=== PATIENT | female | born 1990 | race Caucasian/White ===

== ENCOUNTER 2017-07-27 13:10 | Inpatient (IN) | payer MEDICAID ==
[2017-07-27] MEDS ORDERED: LACTATED RINGER'S 1,000 ML IV SCH (13:33)
[2017-07-27 13:48] LABS: BASOPHILS % 0.2 % (0.0-2.0); EOSINOPHILS % 0.2 % (0.0-7.0); HEMATOCRIT 38.3 % (37.0-47.0); HEMOGLOBIN 13.6 g/dl (12.0-16.0); LYMPHOCYTES # 1.8 10^3/ul (0.8-2.9); LYMPHOCYTES % 14.2 % (15.0-51.0); MEAN CORPUSCULAR HEMOGLOBIN 32.3 pg (29.0-33.0); MEAN CORPUSCULAR HGB CONC 35.5 g/dl (32.0-37.0); MEAN PLATELET VOLUME 10.8 fl (7.4-10.4); MONOCYTE # 0.6 10^3/ul (0.3-0.9); MONOCYTES % 4.5 % (0.0-11.0); NEUTROPHIL # 10.4 10^3/ul (1.6-7.5); NEUTROPHILS % 80.4 % (39.0-77.0); PLATELET COUNT 169 10^3/UL (140-415); RED BLOOD COUNT 4.21 10^6/ul (4.20-5.40); RED CELL DISTRIBUTION WIDTH 12.7 % (11.5-14.5)
[2017-07-27] MEDS ORDERED: BUTORPHANOL 2 MG INJ IV PRN (14:00)
[2017-07-27] MEDS ORDERED: OXYTOCIN 30 UNITS/LR 500 ML IV SCH ×2 (14:00→16:41)
[2017-07-27] MEDS ORDERED: MISOPROSTOL 200 MCG TAB PR PRN (14:00)
[2017-07-27] MEDS ORDERED: IBUPROFEN 600 MG TAB PO PRN (14:00)
[2017-07-27] MEDS ORDERED: LIDOCAINE 1% (MPF) 30 ML INJ INJ PRN (14:00)
[2017-07-27] MEDS ORDERED: OXYTOCIN 30 UNITS/LR 500 ML IV PRN (14:00)
[2017-07-27] MEDS ORDERED: HYDROCODONE/APAP (5/325) TAB PO PRN ×3 (14:00→17:00)
[2017-07-27] MEDS ORDERED: CARBOPROST 250 MCG INJ IM PRN (14:00)
[2017-07-27] MEDS ORDERED: METHYLERGONOVINE 0.2 MG INJ IM PRN (14:00)
[2017-07-27 14:19] LABS: INR 0.93; PROTIME 12.5 Sec (11.9-14.9)
[2017-07-27 14:20] LABS: PARTIAL THROMBOPLASTIN TIME 25.6 Sec (25.0-35.0)
[2017-07-27] MEDS: OXYTOCIN 30 UNITS/LR 500 ML IV SCH ×2 (14:48→22:41)
[2017-07-27] MEDS ORDERED: IBUPROFEN 600 MG TAB PO STA (15:31)
[2017-07-27 16:32] VITALS: BP 108/66; PULSE 68; RESP 18
[2017-07-27] MEDS ORDERED: ONDANSETRON 4 MG INJ IV PRN (17:00)
[2017-07-27] MEDS ORDERED: WITCH HAZEL/GLYCERIN PAD PR PRN (17:00)
[2017-07-27] MEDS ORDERED: OXYCODONE/ASPIRIN (4.88/325) TAB PO PRN ×2 (17:00)
[2017-07-27] MEDS ORDERED: ACETAMINOPHEN 325 MG TAB PO PRN (17:00)
[2017-07-27] MEDS ORDERED: DIBUCAINE 1% 30 GM OINT PR PRN (17:00)
[2017-07-27] MEDS ORDERED: LANOLIN 7 GM TUBE TOP PRN (17:00)
[2017-07-27] MEDS ORDERED: BENZOCAINE 20% 56 ML SPRAY TOP PRN (17:00)
--- NOTE | 2017-07-27 17:44 | LDN ---
Date/Time of Note Date/Time of Note DATE: 07/27/17 TIME: 17:34 Delivery Summary Normal spontaneous vaginal delivery baby girl from OA position shoulders delivered without difficulty rest of the baby's body followed cord clamped after stopped pulsation placenta spontaneous expulsion inspected complete post delivery peritoneal vaginal inspection no laceration estimated blood loss 200- 250 cc Weeks of Gestation 39 weeks 3 days Placenta Delivered: Spontaneously Meconium: Light Episiotomy: No Laceration repair: None Anesthesia type: Local Sponge & Needle done & correct: Yes All needle counts correct: Yes Any foreign bodies felt in the: No Problems: Infant Delivery Information Sex Sex: female Apgars 1 Minute: 9 5 Minute: 9 Suctioning Nose & mouth suctioned at torie: Yes Delee suction performed: No Umbilical Cord Umbilical cord with: 3 Vessels Cord presentations: nuchal cord DOREEN HIDALGO MD Jul 27, 2017 17:44
--- NOTE | 2017-07-27 17:51 | HP ---
Date/Time of Note Date/Time of Note DATE: 07/27/17 TIME: 17:45 OB - History Hx of Present Free Text/Dictation This is a 26 years old female admitted to [facility] in active labor her EDC IS July 31, 2017 pelvic examination on admission cervix 5-6 cm dilated 100% effaced vertex at -1 station with bulging bag to heart rate category 1 Chief Complaint: Labor contraction Estimated Due Date: Jul 31, 2017 : 3 Para: 2 Care: Good Care Ultrasounds: Normal mid trimester US Obstetrical Complications: None, Growth Restriction Medical Complications: None, Musculoskeletal Past Family/Social History * Past Medical, Surgical, Family and Obstetric Histories reviewed from chart. Rubella: immune RPR/VDRL: Negative GBS Status: Negative OB Admission Exam Vital Signs Vital Signs Vital Signs Date Time Temp Pulse Resp B/P Pulse Ox O2 Delivery O2 Flow Rate FiO2 07/27/17 16:32 99.0 68 18 108/66 Room Air Physical Exam HEENT: WNL Heart: Rhythm Normal Lungs: Clear, Equal Abdomen: WNL Extremities: Normal Reflexes: Normal Cervical Dilatation: 7cm Effacement: 100% Station: -1 Membranes: Intact Amniotic Fluid: Thin Meconium Heart Rate: 130's Accelerations: Accelerations Present Decelerations: No Decelerations Varibility: Moderate Contractions on Admission: < 5 Minutes Apart Intensity: Moderate Last 72 hours Lab Results CBC & BMP 07/27/17 13:30 OB Assessment/Plan Plan: Expectant Management Other plan: 39 weeks 3 days active labor patient transferred from triage to L&D anticipating vaginal delivery DOREEN HIDALGO MD Jul 27, 2017 17:51
[2017-07-27] MEDS: IBUPROFEN 600 MG TAB PO SCH (18:00)
[2017-07-27 19:30] VITALS: BP 105/60; PULSE 68; RESP 20
[2017-07-27] MEDS: SENNA/DOCUSATE NA (8.6MG/50MG) TAB PO SCH (21:14)
[2017-07-28] MEDS: IBUPROFEN 600 MG TAB PO SCH ×5 (00:35→23:37)
[2017-07-28 04:20] VITALS: BP 106/64; PULSE 70; RESP 19
[2017-07-28 07:30] VITALS: BP 107/66; PULSE 69; RESP 20
[2017-07-28] MEDS: SENNA/DOCUSATE NA (8.6MG/50MG) TAB PO SCH ×2 (08:57→21:12)
[2017-07-28 11:40] VITALS: BP 110/78; PULSE 71; RESP 20
--- NOTE | 2017-07-28 12:38 | QN ---
Documentation Comment Post normal vaginal delivery day 1 Afebrile Vital signs are stable Abdomen soft. Uterus firm. Lochia normal. Extremities normal. Ambulation encouraged. DOREEN HIDALGO MD Jul 28, 2017 12:38
[2017-07-28 12:41] LABS: BASOPHILS % 0.3 % (0.0-2.0); EOSINOPHILS # 0.1 10^3/ul (0.0-0.5); EOSINOPHILS % 0.9 % (0.0-7.0); HEMATOCRIT 34.1 % (37.0-47.0); LYMPHOCYTES # 2.3 10^3/ul (0.8-2.9); LYMPHOCYTES % 23.4 % (15.0-51.0); MEAN CORPUSCULAR HEMOGLOBIN 32.4 pg (29.0-33.0); MEAN CORPUSCULAR HGB CONC 35.2 g/dl (32.0-37.0); MEAN CORPUSCULAR VOLUME 92.2 fl (82.0-101.0); MONOCYTE # 0.6 10^3/ul (0.3-0.9); MONOCYTES % 6.3 % (0.0-11.0); NEUTROPHIL # 6.8 10^3/ul (1.6-7.5); NEUTROPHILS % 68.6 % (39.0-77.0); PLATELET COUNT 155 10^3/UL (140-415); RED CELL DISTRIBUTION WIDTH 12.9 % (11.5-14.5); WHITE BLOOD COUNT 9.8 10^3/ul (4.8-10.8)
[2017-07-28] MEDS ORDERED: INFLUENZA VIRUS VACCINE 0.5 ML SYG IM* ONE (15:00)
[2017-07-28 16:00] VITALS: BP 112/59; PULSE 67; RESP 18
[2017-07-28 19:35] VITALS: BP 108/60; PULSE 76; RESP 20
[2017-07-29 04:15] VITALS: BP 101/64; PULSE 68; RESP 19
[2017-07-29] MEDS: IBUPROFEN 600 MG TAB PO SCH ×2 (05:42→12:10)
[2017-07-29 08:30] VITALS: BP 94/69; PULSE 80; RESP 18
[2017-07-29] MEDS ORDERED: MEASLES,MUMPS,RUBELLA VACCINE INJ SC* ONE (09:00)
--- NOTE | 2017-07-29 09:04 | PD.PPDC ---
CARDIAC CARE UNIT NURSE Discharge Instruction Condition Patient Condition: Good Diet Diet: Resume Regular Diet Activity/Restrictions Activity: Normal Activity May Shower Restrictions: No Exercising No Lifting No Driving No Sexual Activity Nothing in the Vagina No [place] No Tampons, douche Follow-up Follow-up with Physician: 2, Week/Weeks Provider Information: instruction given recommended to make appointment to be seen at the clinic in 2 weeks Return to clinic for F[employer]ER Instructions: Fever greater than 101 Chills Worsening abdominal pain Excessive Vaginal Bleeding More than 2 pads per hour Unable to tolerate diet OB Instructions: Breast Tenderness Depression Blurried Vision Headache DOREEN HIDALGO MD Jul 29, 2017 09:04
--- NOTE | 2017-07-29 09:06 | DS ---
Date/Time of Note Date/Time of Note DATE: 07/29/17 TIME: 09:05 Discharge Summary Admission/Discharge Info Admit Date/Time Jul 27, 2017 at 13:28 Discharge Date/Time July 29, 2017 at 8:50 AM Discharge Diagnosis Post normal vaginal delivery day 2 Patient Condition: Good Procedures Normal vaginal delivery Hx of Present Illness Term admitted to the hospital for delivery Hospital Course Satisfactory recovery uneventful Follow-up Plan instructions given recommended to make appointment to be seen at the clinic in 2 weeks Primary Care Provider Care Physician No Primary Time spent on discharge: < 30 minutes Pending Labs Laboratory Tests Test 07/28/17 11:42 White Blood Count 9.810^3/ul (4.8-10.8) Red Blood Count 3.7010^6/ul (4.20-5.40) Hemoglobin 12.0g/dl (12.0-16.0) Hematocrit 34.1% (37.0-47.0) Mean Corpuscular Volume 92.2fl (82.0-101.0) Mean Corpuscular Hemoglobin 32.4pg (29.0-33.0) Mean Corpuscular Hemoglobin Concent 35.2g/dl (32.0-37.0) Red Cell Distribution Width 12.9% (11.5-14.5) Platelet Count 46316^3/UL (140-415) Mean Platelet Volume 11.0fl (7.4-10.4) Neutrophils % 68.6% (39.0-77.0) Lymphocytes % 23.4% (15.0-51.0) Monocytes % 6.3% (0.0-11.0) Eosinophils % 0.9% (0.0-7.0) Basophils % 0.3% (0.0-2.0) Nucleated Red Blood Cells % 0.0/100WBC (0.0-0.0) Neutrophils # 6.810^3/ul (1.6-7.5) Lymphocytes # 2.310^3/ul (0.8-2.9) Monocytes # 0.610^3/ul (0.3-0.9) Eosinophils # 0.110^3/ul (0.0-0.5) Basophils # 0.010^3/ul (0.0-0.1) Nucleated Red Blood Cells # 0.010^3/ul (0.0-0.0) DOREEN HIDALGO MD Jul 29, 2017 09:06
[2017-07-29] MEDS ORDERED: INFLUENZA VIRUS VACCINE 0.5 ML SYG IM* ONE (10:00)
[2017-07-29] MEDS: SENNA/DOCUSATE NA (8.6MG/50MG) TAB PO SCH (10:29)
== END 2017-07-29 14:12 | disposition home or self-care (01) | DRG 775 ==
LOC: OBT 13:10 → L-D 13:11 → OBT 13:27 → L-D 13:28 → PP1 16:15
PROVIDERS: ADMIT Obstetrics & Gynecology; ATTEND Obstetrics & Gynecology
PROC: 10E0XZZ Delivery of Products of Conception, External Approach (ICD-10-PCS; principal; 2017-07-27)
DX: O80 Encounter for full-term uncomplicated delivery (principal); Z37.0 Single live birth; Z3A.39 39 weeks gestation of pregnancy
CPT/HCPCS: 85025; 85610; 85730; 86592; 86850; 86900; 86901; 87340; 90686; G0463; J2590; J7120